=== PATIENT | female | born 1955 | race Caucasian/White ===

== ENCOUNTER 2016-06-26 12:19 | Emergency (ER) | payer OTHER ==
[2016-06-26 12:40] VITALS: BP 109/75; PULSE 77; RESP 16; TEMP 98.5
--- NOTE | 2016-06-26 13:27 | ED ---
General Adult HPI - General Chief complaint: Extremity Problem,Nontraumatic Stated complaint: Positive DVT Time Seen by Provider: 06/26/16 12:55 Source: patient, family, RN notes reviewed Mode of arrival: wheelchair Limitations: no limitations - History of Present Illness Initial comments: There is a 61-year-old female presents with a known DVT to the left lower extremity. Patient was sent over [facility] after this blood clot was found on an MRI for a meniscal tear. Patient states she has had recent plane travel but thought her pain was all due to the meniscal tear. Patient denies any shortness breath, chest pain, headache or visual changes. Patient has no history of A. fib. Patient has no calf tenderness or noticeable swelling except to the knee. Patient denies any numbness/weakness or tingling to the left lower extremity. Patient denies any recent fever, chills, abdominal pain, nausea/vomiting/diarrhea, back pain, numbness, tingling, hematuria, or any other complaints. - Related Data Previous Rx's Medication Instructions Recorded Apixaban [Eliquis] 5 mg PO BID 30 Days 06/26/16 Allergies Allergy/AdvReac Type Severity Reaction Status Date / Time codeine Allergy Unknown Verified 06/26/16 12:36 Penicillins Allergy Unknown Verified 06/26/16 12:36 tramadol [From Ultram] Allergy Unknown Verified 06/26/16 12:36 Review of Systems ROS Statement: Those systems with pertinent positive or pertinent negative responses have been documented in the HPI. ROS Other: All systems not noted in ROS Statement are negative. Past Medical History Past Medical History: Hyperlipidemia, Hypertension, Thyroid Disorder History of Any Multi-Drug Resistant Organisms: None Reported Past Surgical History: Appendectomy, Breast Surgery, Heart Catheterization, Hysterectomy, Tubal Ligation Additional Past Surgical History / Comment(s): BREAST REDUCTION, APPENDECTOMY Past Psychological History: No Psychological Hx Reported Smoking Status: Never smoker Past Alcohol Use History: Occasional Past Drug Use History: None Reported General Exam - General Exam Comments Initial Comments: General: The patient is awake and alert, in no distress, and does not appear acutely ill. Eye: Pupils are equal, round and reactive to light, extra-ocular movements are intact. No nystagmus. There is normal conjunctiva bilaterally. No signs of icterus Neck: The neck is supple, there is no tenderness or JVD. Cardiovascular: There is a regular rate and rhythm. No murmur, rub or gallop is appreciated. Respiratory: Lungs are clear to auscultation, respirations are non-labored, breath sounds are equal. No wheezes, stridor, rales, or rhonchi. Musculoskeletal: Patient has tenderness to the posterior left knee. There is no unilateral leg swelling or calf tenderness. Full range of motion, strength 5 /5 and Sensation intact. Posterior tibial pulses 2+ bilaterally. Capillary refill is normal at less then 2 seconds. Neurological: A&O x 3. CN II-XII intact, There are no obvious motor or sensory deficits. Coordination appears grossly intact. Speech is normal. Skin: Skin is warm and dry and no rashes or lesions are noted. Psychiatric: Normal mood and affect. Limitations: no limitations Course Vital Signs 06/26/16 12:36 Temperature 98.5 F Pulse Rate 77 Respiratory 16 Rate Blood Pressure 109/75 O2 Sat by Pulse 100 Oximetry Medical Decision Making - Medical Decision Making This is a 61-year-old female presents with a known DVT found out via an MRI. On physical exam Patient has tenderness to the posterior left knee. There is no unilateral leg swelling or calf tenderness. Full range of motion, strength 5 /5 and Sensation intact. Posterior tibial pulses 2+ bilaterally. Capillary refill is normal at less than 2 seconds. An MRI from [facility] shows findings consistent with deep venous thrombosis of the gastrocnemius venous structures within the medial head of the gastrocnemius muscle. I discussed the results with patient and discussed that she'll be started on Eliquis. Patient was given a starting dose today in the [facility]. Discussed return parameters. I discussed the patient is to follow-up with her PCP in one to 2 days or return to the [facility] for any worsening symptoms or for any further concerns. Patient was receptive to this plan and patient will be discharged home. Disposition Clinical Impression: Deep venous thrombosis of lower extremity Disposition: HOME SELF-CARE Condition: Good Instructions: Deep Venous Thrombosis (ED) Additional Instructions: Please take Eliquis as prescribed. Please follow-up with family doctor in the next 2 days of symptoms have not improved. Please return to emergency room if the symptoms increase or worsen or for any other concerns. Prescriptions: Apixaban [Eliquis] 5 mg PO BID 30 Days Referrals: Nonstaff,Physician [Primary Care Provider] - 1-2 days Daysi Upton MD [STAFF PHYSICIAN] - 1-2 days Time of Disposition: 13:27
[2016-06-26] MEDS ORDERED: APIXABAN 5 MG TAB PO STA (13:28)
== END 2016-06-26 13:53 | disposition home or self-care (01) ==
LOC: EC 12:19
DX: I82.402 Acute embolism and thrombosis of unspecified deep veins of left lower extremity (principal); Z88.0 Allergy status to penicillin; Z88.6 Allergy status to analgesic agent
CPT/HCPCS: 99283